=== PATIENT | male | born 1945 | race African-American/Black ===

== ENCOUNTER 2018-07-07 11:50 | Emergency (ER) | payer OTHER ==
[2018-07-07 13:05] LABS: ALT (SGPT) 62 U/L (8-55); AST (SGOT) 116 U/L (5-34); Albumin 3.3 g/dL (3.4-4.8); Alkaline Phosphatase 150 U/L (40-150); Anion Gap 15 mmol/L (10-20); BUN (Urea Nitrogen) 21 mg/dL (8.4-25.7); Bilirubin, Total 2.6 mg/dL (0.2-1.2); Calc. Creatinine Clearance 0 mL/min (70-130); Calcium 9.9 mg/dL (7.8-10.44); Carbon Dioxide 21 mmol/L (23-31); Chloride 110 mmol/L (98-107); Estimated GFR-MDRD 79; Globulin 4.2 g/dL (2.4-3.5); Glucose 108 mg/dL (80-115); Potassium 4.8 mmol/L (3.5-5.1); Protein, Total 7.5 g/dL (5.8-8.1); Sodium 141 mmol/L (136-145)
--- NOTE | 2018-07-07 14:06 | CT ---
CT BRAIN WITHOUT CONTRAST: Comparison: None. History: Stroke like symptoms. [facility] Technique: Multiple contiguous axial images were obtained in a CT of the brain without contrast. FINDINGS: There are slightly more prominent hypodensity in both cerebellar hemispheres. This is of uncertain si gnificance. There are scattered hypodensities in the subcortical and periventricular white matter, li jenise secondary to small vessel ischemic disease. There is no of intracranial hemorrhage or extraaxial fluid collections. The calvarium and overlying soft tissues are unremarkable. The visualized paranasal sinuses and masto id air cells are well aerated. IMPRESSION: 1. Small vessel ischemic disease. 2. Slightly prominent hypodense lesions in the cerebellar hemispheres may be secondary to small vesse l ischemic disease. A posterior fossa process cannot be excluded and an MRI would need to be performe d to exclude a process occurring in the posterior fossa. POS: BABATUNDE
[2018-07-07 14:37] LABS: Hemoglobin 13.7 g/dL (14.0-18.0); Mean Corpuscular HGB CONC 32.5 g/dL (32.0-36.0); Mean Corpuscular Hemoglobin 30.6 pg (27.0-31.0); Mean Corpuscular Volume 94.2 fL (78.0-98.0); RBC Distribution Width 13.2 % (11.5-14.5); Red Blood Cell (RBC) Count 4.46 mill/uL (4.70-6.10); White Blood Cell (WBC) Count 4.4 thou/uL (4.8-10.8)
[2018-07-07 15:17] LABS: Band 4 % (5-11); Eosinophils 1 % (0-10); Lymphocytes 4 % (21-51); MDiff Complete? YES; Mean Platelet Volume 8.7 fL (7.4-10.4); Monocytes 1 % (0-10); Neutrophil 90 % (42-75); PLT Morphology Comment Appears Decreased; Platelet Count 103 thou/uL (130-400)
--- NOTE | 2018-07-10 13:48 | EKG ---
Test Reason : Blood Pressure : / mmHG Vent. Rate : 070 BPM Atrial Rate : 070 BPM P-R Int : 142 ms QRS Dur : 076 ms QT Int : 432 ms P-R-T Axes : -27 026 061 degrees QTc Int : 466 ms Sinus rhythm with Premature atrial complexes with Abberant conduction Inferior infarct , age undetermined Abnormal ECG Confirmed by KADIE HODGE DO ([id number]), manuscript editor CARMELA ATKINSON ([id number]) on 07/10/2018 1:47:44 PM Referred By: Confirmed By:KADIE HODGE DO
== END 2018-07-07 15:00 | disposition home or self-care (01) ==
LOC: ERS 11:50
DX: I63.9 Cerebral infarction, unspecified (principal); B19.20 Unspecified viral hepatitis C without hepatic coma; K74.60 Unspecified cirrhosis of liver; I10 Essential (primary) hypertension; E10.40 Type 1 diabetes mellitus with diabetic neuropathy, unspecified
CPT/HCPCS: 36415; 70450; 80053; 85025; 93005

== ENCOUNTER 2018-07-08 10:27 | Emergency (ER) | payer OTHER ==
[2018-07-08 11:41] LABS: Bilirubin Small (Negative); Blood, Urine Negative (Negative); Clarity CLEAR (Clear); Glucose, Urine (Dipstick) Negative (Negative); Leukocyte Negative (Negative); Nitrite Negative (Negative); Protein, Urine (Dipstick) Negative (Neg-Trace); Specific Gravity, Urine 1.023 (1.002-1.036); pH, Urine 6.5 (5.0-9.0)
[2018-07-08 11:51] LABS: Acetaminophen Less than 6.0 mcg/mL (10.0-30.0); Alcohol Less than 10 mg/dL (Less than 10); Salicylate Less than 8.0 mg/dL (15.0-30.0)
[2018-07-08 11:56] LABS: #Basophils 0.1 thou/uL (0.0-0.2); #Monocytes 0.4 thou/uL (0.11-0.59); #Neutrophils 2.8 thou/uL (1.40-6.50); %Basophils 1.2 % (0.0-1.0); %Eosinophils 0.5 % (0.0-10.0); %Lymphocytes 23.5 % (21.0-51.0); %Monocytes 9.4 % (0.0-10.0); %Neutrophils 65.4 % (42.0-75.0); Hemoglobin 13.5 g/dL (14.0-18.0); Mean Corpuscular HGB CONC 32.8 g/dL (32.0-36.0); Mean Corpuscular Hemoglobin 30.9 pg (27.0-31.0); Mean Corpuscular Volume 94.2 fL (78.0-98.0); Platelet Count 114 thou/uL (130-400); RBC Distribution Width 13.4 % (11.5-14.5); Red Blood Cell (RBC) Count 4.38 mill/uL (4.70-6.10); White Blood Cell (WBC) Count 4.3 thou/uL (4.8-10.8)
[2018-07-08 11:59] LABS: ALT (SGPT) 63 U/L (8-55); AST (SGOT) 117 U/L (5-34); Albumin 3.2 g/dL (3.4-4.8); Alkaline Phosphatase 121 U/L (40-150); Anion Gap 12 mmol/L (10-20); BUN (Urea Nitrogen) 26 mg/dL (8.4-25.7); Bilirubin, Total 2.6 mg/dL (0.2-1.2); Calc. Creatinine Clearance 0 mL/min (70-130); Carbon Dioxide 21 mmol/L (23-31); Chloride 111 mmol/L (98-107); Estimated GFR-MDRD 78; Globulin 4.2 g/dL (2.4-3.5); Glucose 126 mg/dL (80-115); Lipase 59 U/L (8-78); Potassium 5.2 mmol/L (3.5-5.1); Protein, Total 7.4 g/dL (5.8-8.1); Sodium 139 mmol/L (136-145)
[2018-07-08 12:03] LABS: Amphetamine Not Detected (NotDetected); Barbiturates Screen Not Detected (NotDetected); Benzodiazepine Screen Not Detected (NotDetected); Cocaine Metabolite Screen Not Detected (NotDetected); Medtox Control Line Valid? VALID (VALID); Medtox Reader # READER 1; Methadone Not Detected (NotDetected); Methamphetamine Not Detected (NotDetected); Opiate Screen Not Detected (NotDetected); Oxycodone Screen Not Detected (NotDetected); Phencyclidine (PCP) Not Detected (NotDetected); THC/Cannabinoid Screen Not Detected (NotDetected); Tricyclic Screen Not Detected (NotDetected)
--- NOTE | 2018-07-08 13:38 | CT ---
CT BRAIN: Date: 07/08/18 PROVIDED CLINICAL HISTORY: Altered mental status. FINDINGS: Comparison with 07/07/18. The ventricular system appears unchanged in size and morphology. Patchy areas of diminished attenuati on are again noted involving the cerebral white matter. There is abnormally diminished density involv ing the cerebellar peduncles and cerebral hemisphere white matter, atypical for sites of chronic micr ovascular ischemic change. There is no evidence for intracranial hemorrhage. The extracranial soft ti ssues and osseous structures appear unremarkable. IMPRESSION: 1. No evidence for intracranial hemorrhage or mass effect. 2. Unusual hypodensity involving the cerebellum, stable with respect to the prior study. This could reflect chronic ischemic change. Other etiologies are not excluded. Consideration for follow-up MRI i s recommended. POS: OFF
[2018-07-08] MEDS ORDERED: Morphine 4 MG/ML VIAL ONE (20:51)
[2018-07-08] MEDS ORDERED: Diltiazem 125 MG/25 ML ONE (22:05)
--- NOTE | 2018-07-10 13:54 | EKG ---
Test Reason : AMS Blood Pressure : / mmHG Vent. Rate : 078 BPM Atrial Rate : 078 BPM P-R Int : 152 ms QRS Dur : 086 ms QT Int : 404 ms P-R-T Axes : 034 029 052 degrees QTc Int : 460 ms Normal sinus rhythm Normal ECG Confirmed by UJDY CONKLIN ([id number]), pictures editor CARMELA ATKINSON ([id number]) on 07/10/2018 1:54:20 PM Referred By: Confirmed By:JUDY CONKLIN
== END 2018-07-08 21:09 | disposition short-term general hospital (02) ==
LOC: ERS 10:27
DX: R41.82 Altered mental status, unspecified (principal); E10.40 Type 1 diabetes mellitus with diabetic neuropathy, unspecified; I10 Essential (primary) hypertension; Z79.4 Long term (current) use of insulin; Z79.899 Other long term (current) drug therapy
CPT/HCPCS: 36415; 51701; 70450; 80053; 80306; 80307; 81003; 82140; 83690; 84484; 85025; 93005; 96361; 96374; J2270

== ENCOUNTER 2018-07-28 07:14 | Inpatient (IN) | payer OTHER ==
--- NOTE | 2018-07-28 08:19 | RAD ---
PORTABLE CHEST ONE VIEW: Date: 07-28-18 Time: 8:06 a.m. History: Altered mental status. FINDINGS: The heart size is borderline. The aorta is tortuous. The lungs are well expanded without focal areas of consolidation, pneumothoraces or pleural effusions. IMPRESSION: No acute process. POS: OFF
[2018-07-28 08:29] LABS: Mean Corpuscular HGB CONC 31.7 g/dL (32.0-36.0); Mean Corpuscular Hemoglobin 28.9 pg (27.0-31.0); Mean Corpuscular Volume 91.1 fL (78.0-98.0); Mean Platelet Volume 9.8 fL (7.4-10.4); Platelet Count 98 thou/uL (130-400); RBC Distribution Width 13.4 % (11.5-14.5); Red Blood Cell (RBC) Count 4.49 mill/uL (4.70-6.10); White Blood Cell (WBC) Count 6.5 thou/uL (4.8-10.8)
[2018-07-28 08:30] LABS: INR-International Normal Ratio 1.2; PTT 29.2 SEC (22.9-36.1); Prothrombin Time 14.9 SEC (12.0-14.7)
[2018-07-28 08:38] LABS: ALT (SGPT) 68 U/L (8-55); AST (SGOT) 124 U/L (5-34); Acetaminophen Less than 6.0 mcg/mL (10.0-30.0); Alcohol Less than 10 mg/dL (Less than 10); Alkaline Phosphatase 189 U/L (40-150); Anion Gap 15 mmol/L (10-20); BUN (Urea Nitrogen) 23 mg/dL (8.4-25.7); CK (CPK) 165 U/L (30-200); Calc. Creatinine Clearance 0 mL/min (70-130); Calcium 9.3 mg/dL (7.8-10.44); Carbon Dioxide 21 mmol/L (23-31); Chloride 107 mmol/L (98-107); Estimated GFR-MDRD 64; Globulin 3.9 g/dL (2.4-3.5); Glucose 113 mg/dL (80-115); Lipase 58 U/L (8-78); Potassium 5.1 mmol/L (3.5-5.1); Protein, Total 6.9 g/dL (5.8-8.1); Salicylate Less than 8.0 mg/dL (15.0-30.0); Sodium 138 mmol/L (136-145)
--- NOTE | 2018-07-28 08:42 | CT ---
CT OF THE HEAD: Indication: Altered mental status. Comparison: 07-18-18 FINDINGS: Re-demonstration of diffuse, multifocal white matter hypoattenuation throughout the cerebral hemisphe res. Cerebellum is stable appearing. No intracranial hemorrhage, mass effect, or midline shift. IMPRESSION: No acute intracranial abnormalities. POS: BABATUNDE
[2018-07-28 08:48] LABS: Band 4 % (5-11); Eosinophils 1 % (0-10); Lymphocytes 31 % (21-51); Monocytes 16 % (0-10); Neutrophil 48 % (42-75)
[2018-07-28 08:49] LABS: MDiff Complete? YES
--- NOTE | 2018-07-28 10:36 | PDOC.FPRHP ---
- History of Present Illness Chief Complaint: AMS History of Present Illness: The patient is a 72YO AAM with a PMH significant for chronic hep c and cirrhosis and DMI who presented to the ED after being found in his bed in halfway this AM being described as difficult to arouse. Of note, the history was obtained from the ED physician, Dr. Lyons, as the patient was altered at the time of exam and his halfway guards only provided him with transportation and did not know any additional information. Per Dr. Lyons, the guards found the patient this AM in his bed after it was noticed that he did not get up and go to breakfast as he normally does. Also per Dr. Lyons the patient has a history of multiple ER admission for elevated ammonia levels as he is not compliant with his home lactulose dosing. It was therefore presumed that this was what occurred this time as well so he was brought to the ED for treatment. They attempted to transfer the patient to the halfway hospital but no beds were available so he was cleared to be admitted to the medical floor at [facility]. ED Course: The patient was given 40g of lactulose NH in the ED. - Allergies/Adverse Reactions Allergies Allergy/AdvReac Type Severity Reaction Status Date / Time No Known Allergies Allergy Verified 07/28/18 14:42 - Home Medications Medication Instructions Recorded Confirmed Type Albuterol Sulfate [Proventil Hfa] 2 puff INH QID PRN 07/28/18 07/28/18 History Aspirin [Aspirin Chewable] 81 mg PO DAILY 07/28/18 07/28/18 History Carvedilol [Coreg] 6.25 mg PO BID 07/28/18 07/28/18 History Furosemide 40 mg PO DAILY 07/28/18 07/28/18 History Hepatitis A Virus Vaccine/PF 1,440 unit IM ASDIR 07/28/18 07/28/18 History [Havrix 720 Units/0.5 ml Vial] Hepatitis B Virus Vaccine/PF 20 mcg IM ASDIR 07/28/18 07/28/18 History [Engerix-B 20 Mcg/ml Syrn] Insulin NPH Human Isophane 12 unit SC HS 07/28/18 07/28/18 History [NovoLIN N] Insulin NPH Human Isophane 17 unit SC DAILY 07/28/18 07/28/18 History [NovoLIN N] Ipratropium [Atrovent HFA] 2 puff INH QID 07/28/18 07/28/18 History Lactulose [Constulose] 60 ml PO TID 07/28/18 07/28/18 History Omeprazole 2 cap PO DAILY 07/28/18 07/28/18 History Rifaximin [Xifaxan] 3 tab PO BID 07/28/18 07/28/18 History Sodium Chloride [[place] Nasal [place] 1 spray EA NARE TID 07/28/18 07/28/18 History 0.65%] Spironolactone 4 tab PO DAILY 07/28/18 07/28/18 History - History PMHx: chronic hep C w/ cirrhosis, DMI, GERD, HTN, HLD, asthma PSHx: unable to obtain 2/2 AMS FHx: unable to obtain see above Social: unable to obtain see above - Review of Systems ROS unobtainable: due to mental status - Vital signs BP: 160/80 HR: 81 RR: 18 Tmax: 98.3F Pox: 96% on RA Wt: 99.79 kg FMR H&P: Results - Labs Result Diagrams: 07/28/18 07:52 07/28/18 07:52 Lab results: WBC 6.5 thou/uL (4.8-10.8) 07/28/18 07:52 Hgb 13.0 g/dL (14.0-18.0) L 07/28/18 07:52 Hct 40.9 % (42.0-52.0) L 07/28/18 07:52 MCV 91.1 fL (78.0-98.0) 07/28/18 07:52 Plt Count 98 thou/uL (130-400) L 07/28/18 07:52 Band Neuts % (Manual) 4 % (5-11) L 07/28/18 07:52 Sodium 138 mmol/L (136-145) 07/28/18 07:52 Potassium 5.1 mmol/L (3.5-5.1) 07/28/18 07:52 Chloride 107 mmol/L (98-107) 07/28/18 07:52 Carbon Dioxide 21 mmol/L (23-31) L 07/28/18 07:52 BUN 23 mg/dL (8.4-25.7) 07/28/18 07:52 Creatinine 1.34 mg/dL (0.7-1.3) H 07/28/18 07:52 Glucose 113 mg/dL (80-115) 07/28/18 07:52 Calcium 9.3 mg/dL (7.8-10.44) 07/28/18 07:52 Total Bilirubin 2.0 mg/dL (0.2-1.2) H 07/28/18 07:52 AST 124 U/L (5-34) H 07/28/18 07:52 ALT 68 U/L (8-55) H 07/28/18 07:52 Alkaline Phosphatase 189 U/L (40-150) H 07/28/18 07:52 Ammonia 140 umol/L (18-72) H 07/28/18 07:51 Creatine Kinase 165 U/L (30-200) 07/28/18 07:52 Serum Total Protein 6.9 g/dL (5.8-8.1) 07/28/18 07:52 Albumin 3.0 g/dL (3.4-4.8) L 07/28/18 07:52 Lipase 58 U/L (8-78) 07/28/18 07:52 - EKG Interpretation EKG: sinus rhythm with PACs - Radiology Interpretation CT scan - head Status: report reviewed by me Additional comment: no acute IC process Chest x-ray Status: report reviewed by me Additional comment: No acute cardiopulmonary process. FMR H&P: A/P - Problem List (1) Hepatic encephalopathy Current Visit: Yes Status: Acute Code(s): K72.90 - HEPATIC FAILURE, UNSPECIFIED WITHOUT COMA (2) Diabetes mellitus type I Current Visit: Yes Status: Acute (3) HTN (hypertension) Current Visit: Yes Status: Acute Code(s): I10 - ESSENTIAL (PRIMARY) HYPERTENSION (4) HLD (hyperlipidemia) Current Visit: Yes Status: Acute Code(s): E78.5 - HYPERLIPIDEMIA, UNSPECIFIED (5) GERD (gastroesophageal reflux disease) Current Visit: Yes Status: Acute Code(s): K21.9 - GASTRO-ESOPHAGEAL REFLUX DISEASE WITHOUT ESOPHAGITIS (6) Asthma Current Visit: Yes Status: Acute Code(s): J45.909 - UNSPECIFIED ASTHMA, UNCOMPLICATED (7) Hepatitis C Current Visit: Yes Status: Acute Code(s): B19.20 - UNSPECIFIED VIRAL HEPATITIS C WITHOUT HEPATIC COMA (8) Cirrhosis Current Visit: Yes Status: Acute Code(s): K74.60 - UNSPECIFIED CIRRHOSIS OF LIVER - Plan 72YO AAM w/ a history of chronic hep C with cirrhosis and DMI who was brought into the ED from state halfway after being found obtunded in his bed this AM and was found to suffering from hepatic encephalopathy. Acute hepatic encephalopathy: - Ammonia elevated at 140 on presentation and GCS score of 13-14 at time of exam. A&Ox1 and able to answer yes or no questions but nothing else and following some commands but not all. - Patient is s/p 20g of NH lactulose in the ED. Will continue until patient has had 2 BMs and will then space out to home dosing of 40g TID. - Will keep NPO while altered and start on maintenance IVFs with LR @ 140mL/hr. - Will get a repeat ammonia level in the AM. h/o hep C and cirrhosis: - Aware, will get Hep C testing to confirm. - Will resume home meds. DMI: - Aware, will start on mild SSI while NPO as patient takes less than 40 units QD of Novolin N. Will resume home basal insulin dosing as well. - Will order an A1c to ensure accurate insulin dosing. - Will order ACHS accuchecks and CC diet once tolerating PO. HTN: - Aware, will resume home meds once tolerating PO. HLD: - Aware, assuming patient is not on a statin due to h/o cirrhosis. GERD: - Aware, will resume home meds. asthma: - Aware, patient no in acute exacerbation. - Will resume home meds. FMR H&P: Upper Level - Pertinent history 72 yo M w/ PMH of hep c cirrhosis and known non-compliance with lactulose presents from assisted. Pt was reportedly found in bed and was verbal, but confused and disoriented. Guards present in pt's room are unable to provide additional hx. - Pertinent findings ROS: Unable to obtain 2/2 encephalopathy PE: Gen- NAD, resting comfortably in bed, confused HEENT: NCAT, PERRLA CV: RRR No MRG Respiratory: Lungs CTA-bl Neuro: GCS E4, V4, M4 (12), hyperreflexia w/o clonus Psych: A&O X0, responds to verbal stimuli; however, inappropriate response Abd: BS X4, NTTP Ext: Pulses 2+ throughout, moving all - Plan Date/Time: 07/28/18 1036 I, Hira Yang DO, have evaluated this patient and agree with findings/ plan as outlined by healthcare administration intern resident. Pertinent changes/additions are listed here. 1) Hepatic encephalopathy: - ammonia 140 - admit medical and give lactulose NH @ 20gms q2hr until 2 soft BMS, then de- escalate to 30gm TID and titrate to 3-4 soft BMs/day - trend daily ammonia - NPO and ADAT as mentation improves - likely related to med non-compliance from available history 2) SHOAIB: - elevated Cr from prior visits - will give gentle IVF hydration and trend daily - possibly 2/2 volume depletion vs GI vs hepatorenal - dc nephrotoxic medications 3) Thrombocytopenia - 2/2 cirrhosis, will trend Dispo: stable, will resume pts lactulose and trend ammonia level, titrate medications to BMs. Consider rifaximin if no resolution or improvement in s/s over 48 hrs. Addendum - Attending - Attending Attestation Date/Time: 07/28/18 8655 I personally evaluated the patient and discussed the management with Dr. Manriquez I agree with the History, Examination, Assessment and Plan documented above with any addition or exceptions noted below- 72 yo male with h/o cirrhosis secondary to hepatitis C and DM presented with altered mental status. Patient is currently an inmate and was found down on his bed obtunded. History of non- compliance with his medications and recent hospitalization for similar episode. PMH/PSH/Meds/All reviewed and agree with resident's documentation. Afebrile VSS. Exam repeated by me and agree with resident's findings except now awake and answering questions. Oriented x1 only. Labs: WBC= 6.5, H/H=13/40.9, Plt=98, PT/INR= 14.9/1.2, NA= 138, K=5.1, Le=706, CO2=21, BUN/Cr=23/1.34, Twyw=064, t. bili=2.0, AST= 124/68, Gnspxvz=066, Alb=3.0, Guq=hykr=155. A/P: 1) Hepatic encephalopathy- continue ;lactulose; change dosing to po. RTestart xifixaman. 2 ) DM- monitor accuchecks; resume home meds.
[2018-07-28 11:10] LABS: Bilirubin Negative (Negative); Blood, Urine Negative (Negative); Clarity CLEAR (Clear); Glucose, Urine (Dipstick) Negative (Negative); Leukocyte Negative (Negative); Nitrite Negative (Negative); Protein, Urine (Dipstick) Negative (Neg-Trace); Specific Gravity, Urine 1.014 (1.002-1.036); pH, Urine 7.5 (5.0-9.0)
[2018-07-28 11:17] LABS: Amphetamine Not Detected (NotDetected); Barbiturates Screen Not Detected (NotDetected); Benzodiazepine Screen Not Detected (NotDetected); Cocaine Metabolite Screen Not Detected (NotDetected); Medtox Control Line Valid? VALID (VALID); Medtox Reader # READER 4; Methadone Not Detected (NotDetected); Methamphetamine Not Detected (NotDetected); Opiate Screen Not Detected (NotDetected); Oxycodone Screen Not Detected (NotDetected); Phencyclidine (PCP) Not Detected (NotDetected); THC/Cannabinoid Screen Not Detected (NotDetected); Tricyclic Screen Not Detected (NotDetected)
[2018-07-28] MEDS ORDERED: Ondansetron PF 4 MG/2 ML Vial IVP PRN ×2 (14:12→15:21)
[2018-07-28] MEDS ORDERED: Ondansetron ODT 4 MG TAB PO PRN (14:12)
[2018-07-28] MEDS ORDERED: Sodium Chloride 0.9% 1,000 ML IV SCH (14:15)
[2018-07-28] MEDS ORDERED: HumaLOG 300 UNITS/3 ML VIAL SC PRN (15:21)
[2018-07-28] MEDS ORDERED: Dextrose 5% in Water 1,000 ML IV PRN (15:21)
[2018-07-28] MEDS ORDERED: Sodium Chloride 0.65% Nasal 44 ML BOT EA NARE PRN (15:21)
[2018-07-28] MEDS ORDERED: Dextrose 50% Abboject 50 ML SYRINGE SLOW IVP PRN (15:21)
[2018-07-28] MEDS: Carvedilol 6.25 MG TAB PO SCH (17:44)
[2018-07-28] MEDS: Lactated Ringer's 1,000 ML IV SCH ×2 (17:45→20:49)
[2018-07-28] MEDS: Ipratropium Oral Inhaler (200 INHALATIONS) INH SCH ×2 (19:15→19:16)
[2018-07-28] MEDS: NPH, Human Insulin Isophane 300 UNIT/3 ML VIAL SC SCH (21:14)
[2018-07-29 04:18] LABS: ALT (SGPT) 58 U/L (8-55); AST (SGOT) 96 U/L (5-34); Albumin 2.7 g/dL (3.4-4.8); Alkaline Phosphatase 116 U/L (40-150); Anion Gap 13 mmol/L (10-20); BUN (Urea Nitrogen) 18 mg/dL (8.4-25.7); Bilirubin, Total 2.5 mg/dL (0.2-1.2); Calc. Creatinine Clearance 0 mL/min (70-130); Calcium 9.2 mg/dL (7.8-10.44); Carbon Dioxide 20 mmol/L (23-31); Chloride 109 mmol/L (98-107); Estimated GFR-MDRD 87; Globulin 3.7 g/dL (2.4-3.5); Glucose 96 mg/dL (80-115); Potassium 4.6 mmol/L (3.5-5.1); Protein, Total 6.4 g/dL (5.8-8.1); Sodium 137 mmol/L (136-145)
--- NOTE | 2018-07-29 05:19 | PDOC.FM ---
- Subjective Subjective: No acute events overnight. A&O x1. - Objective MAR Reviewed: Yes Vital Signs & Weight: Vital Signs (12 hours) Temp Pulse Resp BP BP BP Pulse Ox 07/29/18 00:00 98.1 F 85 18 144/81 H 100 07/28/18 21:00 96 07/28/18 20:00 98.4 F 81 18 128/73 18 L 07/28/18 17:45 86 147/91 H 07/28/18 17:44 147/91 H I&O: 07/27/18 07/28/18 07/29/18 06:59 06:59 06:59 Intake Total 1140 Balance 1140 Result Diagrams: 07/29/18 03:42 07/29/18 03:43 Phys Exam - Physical Examination Constitutional: NAD A&O x1, asterixis Neck: full ROM Respiratory: no wheezing, clear to auscultation bilateral Cardiovascular: RRR, no significant murmur Gastrointestinal: soft, non-tender mild distension Neurological: non-focal, moves all 4 limbs Deviation from normal: A&O x1 Dx/Plan (1) Asthma Code(s): J45.909 - UNSPECIFIED ASTHMA, UNCOMPLICATED Status: Acute (2) Cirrhosis Code(s): K74.60 - UNSPECIFIED CIRRHOSIS OF LIVER Status: Acute (3) Diabetes mellitus type I Status: Acute (4) GERD (gastroesophageal reflux disease) Code(s): K21.9 - GASTRO-ESOPHAGEAL REFLUX DISEASE WITHOUT ESOPHAGITIS Status: Acute (5) HLD (hyperlipidemia) Code(s): E78.5 - HYPERLIPIDEMIA, UNSPECIFIED Status: Acute (6) HTN (hypertension) Code(s): I10 - ESSENTIAL (PRIMARY) HYPERTENSION Status: Acute (7) Hepatic encephalopathy Code(s): K72.90 - HEPATIC FAILURE, UNSPECIFIED WITHOUT COMA Status: Acute (8) Diabetic neuropathy Code(s): E11.40 - TYPE 2 DIABETES MELLITUS WITH DIABETIC NEUROPATHY, UNSP Status: Acute - Plan Plan: 72 yo M with h/o of chronic hepatitis C cirrhosis admitted for hepatic encephalopathy Acute hepatic encephalopathy -likely 2/2 non-compliance per yesterday's report -improved, ammonia today at 72 -continue home lactulose regimen: 40gm po TID FERNANDO -continue home xifaxan 200mg BID -f/u with custodial medical team to get baseline mentation Chronic Hepatitis C Cirrhosis -Pending Hep C immunology -Child Marrero Class B, can f/u outpt to evaluate candidacy for liver transplant Thrombocytopenia -Last admission earlier this july with thrombocytopenia with plts in low 100s -pending AM platelets -likely 2/2 cirrhosis -if significant declined, can consider d/c lovenox SHOAIB, resolved -adequate po intake, continue DM1 -stable -continue mild SS Diabetic neuropathy -gabapentin qhs, low dose due to sedating effects HTN -continue home meds Asthma -stable -continue home meds DVT ppx: lovenox GI ppx: home omeprazole Dispo: stable. still altered, unsure of baseline. continue xifaxan & lactulose FERNANDO. d/c pending return to baseline. Addendum - Attending - Attending Attestation Date/Time: 07/29/18 7368 I personally evaluated the patient and discussed the management with Dr. Lee I agree with the History, Examination, Assessment and Plan documented above with any addition or exceptions noted below- Patient denies any complaints. Still oriented x 1 only. Afebrile VSS. A/P: 1) Hepatic encephalopathy- continue lactulose and xifaxamin. Will confirm meds with infirmary and whether he has been compliant. 2) Cirrhosis - continue current meds. 3) DM- stable;
[2018-07-29] MEDS: Lactated Ringer's 1,000 ML IV SCH ×3 (05:25→19:36)
[2018-07-29] MEDS: Ipratropium Oral Inhaler (200 INHALATIONS) INH SCH ×4 (06:58→18:25)
[2018-07-29] MEDS: Carvedilol 6.25 MG TAB PO SCH ×2 (07:26→15:30)
[2018-07-29] MEDS: Enoxaparin Sodium 40 MG/0.4 ML SYRINGE SC SCH (07:26)
[2018-07-29] MEDS: Aspirin 81 mg Enteric Coated Tablet PO SCH (07:26)
[2018-07-29] MEDS: Spironolactone 100 MG TAB PO SCH (07:26)
[2018-07-29] MEDS: Furosemide 40 MG TAB PO SCH (07:26)
[2018-07-29] MEDS: NPH, Human Insulin Isophane 300 UNIT/3 ML VIAL SC SCH ×2 (07:27→21:41)
[2018-07-29] MEDS ORDERED: Carvedilol 6.25 MG TAB PO SCH (09:00)
[2018-07-29] MEDS ORDERED: Furosemide 40 MG TAB PO SCH (09:00)
[2018-07-29] MEDS ORDERED: Pantoprazole 40 MG VIAL IVP SCH (09:00)
[2018-07-29] MEDS ORDERED: OMEPRAZOLE PO SCH (09:00)
[2018-07-29] MEDS ORDERED: Spironolactone 25 MG TAB PO SCH (09:00)
[2018-07-29] MEDS ORDERED: RIFAXIMIN PO SCH (09:00)
[2018-07-29 10:30] LABS: #Basophils 0.1 thou/uL (0.0-0.2); #Eosinphils 0.3 thou/uL (0.0-0.7); #Monocytes 1.1 thou/uL (0.11-0.59); #Neutrophils 4.2 thou/uL (1.40-6.50); %Basophils 0.8 % (0.0-1.0); %Eosinophils 4.5 % (0.0-10.0); %Lymphocytes 26.1 % (21.0-51.0); %Monocytes 13.9 % (0.0-10.0); %Neutrophils 54.7 % (42.0-75.0); Hemoglobin 11.6 g/dL (14.0-18.0); Mean Corpuscular HGB CONC 32.8 g/dL (32.0-36.0); Mean Corpuscular Volume 91.4 fL (78.0-98.0); Mean Platelet Volume 5.1 fL (7.4-10.4); Platelet Count 297 thou/uL (130-400); RBC Distribution Width 13.3 % (11.5-14.5); Red Blood Cell (RBC) Count 3.87 mill/uL (4.70-6.10); White Blood Cell (WBC) Count 7.7 thou/uL (4.8-10.8)
[2018-07-29 10:46] LABS: Hemoglobin A1c 5.3 % (4.0-6.0)
[2018-07-29] MEDS: Rifaximin 550 MG TAB PO SCH ×3 (14:11→21:41)
[2018-07-29] MEDS ORDERED: Gabapentin 100 MG CAP PO SCH ×2 (20:00→21:15)
[2018-07-30] MEDS: Lactated Ringer's 1,000 ML IV SCH (04:13)
--- NOTE | 2018-07-30 05:59 | PDOC.FM ---
- Subjective Subjective: No acute events overnight. - Objective MAR Reviewed: Yes Vital Signs & Weight: Vital Signs (12 hours) Temp Pulse Resp BP Pulse Ox 07/30/18 04:58 98.1 F 77 18 128/70 96 07/30/18 00:00 98.4 F 75 18 124/83 95 07/29/18 20:00 98.5 F 74 16 127/86 97 07/29/18 18:25 87 20 99 I&O: 07/28/18 07/29/18 07/30/18 06:59 06:59 06:59 Intake Total 2440 2440 Balance 2440 2440 Result Diagrams: 07/30/18 05:33 07/30/18 05:33 Phys Exam - Physical Examination Constitutional: NAD A&Ox1 HEENT: moist MMs Respiratory: no wheezing, no rales Cardiovascular: RRR, no significant murmur Gastrointestinal: soft, non-tender Musculoskeletal: no edema, pulses present Neurological: moves all 4 limbs Dx/Plan (1) Hepatic encephalopathy Code(s): K72.90 - HEPATIC FAILURE, UNSPECIFIED WITHOUT COMA Status: Acute (2) Cirrhosis Code(s): K74.60 - UNSPECIFIED CIRRHOSIS OF LIVER Status: Chronic (3) Diabetes mellitus type I Status: Chronic (4) GERD (gastroesophageal reflux disease) Code(s): K21.9 - GASTRO-ESOPHAGEAL REFLUX DISEASE WITHOUT ESOPHAGITIS Status: Chronic (5) HLD (hyperlipidemia) Code(s): E78.5 - HYPERLIPIDEMIA, UNSPECIFIED Status: Chronic (6) HTN (hypertension) Code(s): I10 - ESSENTIAL (PRIMARY) HYPERTENSION Status: Chronic (7) Diabetic neuropathy Code(s): E11.40 - TYPE 2 DIABETES MELLITUS WITH DIABETIC NEUROPATHY, UNSP Status: Chronic (8) Asthma Code(s): J45.909 - UNSPECIFIED ASTHMA, UNCOMPLICATED Status: Chronic - Plan Plan: 72 yo M with h/o of chronic hepatitis C cirrhosis admitted for hepatic encephalopathy Acute hepatic encephalopathy -2/2 non-compliance per infrirmary provider -clinically improved, ammonia at -continue home lactulose regimen: 40gm po TID FERNANDO -continue home xifaxan 200mg BID Chronic Hepatitis C Cirrhosis -Pending Hep C immunology -Child Marrero Class B, can f/u outpt to evaluate candidacy for liver transplant Thrombocytopenia -Continue to monitor with AM CBC SHOAIB, resolved -adequate po intake, continue DM1 -stable -continue mild SS Diabetic neuropathy -gabapentin qhs, low dose due to sedating effects HTN -continue home meds Asthma -stable -continue home meds DVT ppx: lovenox GI ppx: home omeprazole Dispo: stable. still altered, unsure of baseline. continue xifaxan & lactulose FERNANDO. d/c pending return to baseline. Addendum - Attending - Attending Attestation Date/Time: 07/30/18 7842 I personally evaluated the patient and discussed the management with Dr. Lee. I agree with the History, Examination, Assessment and Plan documented above with any addition or exceptions noted below - Patient without complaints. Afebrile VSS. A&O x2. A/P: 1) Hepatic encephalopathy- continue lactulose and xifaximin. Recheck ammonia tomorrow; orientation/mentation improving. 2) Cirrhosis- stable. 3) DM- stable.
[2018-07-30] MEDS: Furosemide 40 MG TAB PO SCH (06:32)
[2018-07-30] MEDS: Ipratropium Oral Inhaler (200 INHALATIONS) INH SCH ×4 (07:24→18:51)
[2018-07-30 08:35] LABS: Anion Gap 13 mmol/L (10-20); BUN (Urea Nitrogen) 15 mg/dL (8.4-25.7); Calc. Creatinine Clearance 0 mL/min (70-130); Calcium 9.3 mg/dL (7.8-10.44); Carbon Dioxide 20 mmol/L (23-31); Chloride 108 mmol/L (98-107); Estimated GFR-MDRD 76; Glucose 71 mg/dL (80-115); Potassium 4.3 mmol/L (3.5-5.1); Sodium 137 mmol/L (136-145)
[2018-07-30 08:37] LABS: Band 5 % (5-11); Eosinophils 12 % (0-10); Hemoglobin 11.7 g/dL (14.0-18.0); Lymphocytes 39 % (21-51); MDiff Complete? YES; Mean Corpuscular HGB CONC 32.7 g/dL (32.0-36.0); Mean Corpuscular Hemoglobin 30.1 pg (27.0-31.0); Mean Corpuscular Volume 91.8 fL (78.0-98.0); Mean Platelet Volume 6.1 fL (7.4-10.4); Monocytes 10 % (0-10); Neutrophil 33 % (42-75); PLT Morphology Comment Appears Decreased; Platelet Count 127 thou/uL (130-400); RBC Distribution Width 13.3 % (11.5-14.5); Reactive Lymphocytes 1 % (0-10); Red Blood Cell (RBC) Count 3.89 mill/uL (4.70-6.10); White Blood Cell (WBC) Count 5.2 thou/uL (4.8-10.8)
[2018-07-30] MEDS: Carvedilol 6.25 MG TAB PO SCH ×2 (08:59→17:49)
[2018-07-30] MEDS: NPH, Human Insulin Isophane 300 UNIT/3 ML VIAL SC SCH ×2 (08:59→21:18)
[2018-07-30] MEDS: Aspirin 81 mg Enteric Coated Tablet PO SCH (08:59)
[2018-07-30] MEDS: Rifaximin 550 MG TAB PO SCH ×2 (08:59→21:18)
[2018-07-30] MEDS ORDERED: Gabapentin 100 MG CAP PO SCH (09:00)
[2018-07-30] MEDS: Enoxaparin Sodium 40 MG/0.4 ML SYRINGE SC SCH (09:00)
[2018-07-30] MEDS: Spironolactone 100 MG TAB PO SCH (09:15)
[2018-07-30 12:30] VITALS: BMI 26.2
[2018-07-31] MEDS ORDERED: Gabapentin 100 MG CAP PO SCH (00:30)
[2018-07-31] MEDS: Ipratropium Oral Inhaler (200 INHALATIONS) INH SCH ×4 (06:36→20:28)
[2018-07-31] MEDS: Furosemide 40 MG TAB PO SCH (07:26)
[2018-07-31] MEDS: Carvedilol 6.25 MG TAB PO SCH ×2 (07:26→16:47)
[2018-07-31] MEDS: Aspirin 81 mg Enteric Coated Tablet PO SCH (07:26)
[2018-07-31] MEDS: Spironolactone 100 MG TAB PO SCH (07:27)
[2018-07-31] MEDS: Enoxaparin Sodium 40 MG/0.4 ML SYRINGE SC SCH (07:28)
[2018-07-31] MEDS: NPH, Human Insulin Isophane 300 UNIT/3 ML VIAL SC SCH ×2 (07:28→20:32)
[2018-07-31] MEDS: Rifaximin 550 MG TAB PO SCH ×2 (07:28→20:31)
--- NOTE | 2018-07-31 08:01 | PDOC.FM ---
- Subjective Subjective: No acute events overnight. - Objective MAR Reviewed: Yes Vital Signs & Weight: Vital Signs (12 hours) Pulse Resp BP Pulse Ox 07/31/18 07:26 116/69 07/31/18 06:36 81 16 97 Weight Weight 73.652 kg I&O: 07/30/18 07/31/18 08/01/18 06:59 06:59 06:59 Intake Total 2440 1460 Balance 2440 1460 Result Diagrams: 07/31/18 04:12 07/30/18 05:33 Phys Exam - Physical Examination Constitutional: NAD HEENT: moist MMs Cardiovascular: RRR, no significant murmur Gastrointestinal: soft, non-tender distension, fluid wave Musculoskeletal: no edema, pulses present Neurological: non-focal, moves all 4 limbs no asterixis Deviation from normal: a&o x2 Dx/Plan (1) Hepatic encephalopathy Code(s): K72.90 - HEPATIC FAILURE, UNSPECIFIED WITHOUT COMA Status: Acute (2) Cirrhosis Code(s): K74.60 - UNSPECIFIED CIRRHOSIS OF LIVER Status: Chronic (3) Diabetes mellitus type I Status: Chronic (4) GERD (gastroesophageal reflux disease) Code(s): K21.9 - GASTRO-ESOPHAGEAL REFLUX DISEASE WITHOUT ESOPHAGITIS Status: Chronic (5) HLD (hyperlipidemia) Code(s): E78.5 - HYPERLIPIDEMIA, UNSPECIFIED Status: Chronic (6) HTN (hypertension) Code(s): I10 - ESSENTIAL (PRIMARY) HYPERTENSION Status: Chronic (7) Diabetic neuropathy Code(s): E11.40 - TYPE 2 DIABETES MELLITUS WITH DIABETIC NEUROPATHY, UNSP Status: Chronic (8) Asthma Code(s): J45.909 - UNSPECIFIED ASTHMA, UNCOMPLICATED Status: Chronic - Plan Plan: 72 yo M with h/o of chronic hepatitis C cirrhosis admitted for hepatic encephalopathy Acute hepatic encephalopathy -2/2 non-compliance per infrirmary provider -clinically improved despite inc. in ammonia -continue home lactulose regimen: 40gm po TID FERNANDO -continue home xifaxan 200mg BID Chronic Hepatitis C Cirrhosis -Pending Hep C immunology -Child Marrero Class B, can f/u outpt to evaluate candidacy for liver transplant Thrombocytopenia, resolved SHOAIB, resolved -adequate po intake, continue DM1 -stable -continue mild SS Diabetic neuropathy -gabapentin qhs, low dose due to sedating effects HTN -continue home meds Asthma -stable -continue home meds DVT ppx: lovenox GI ppx: home omeprazole Dispo: stable. still altered, unsure of baseline. continue xifaxan & lactulose FERNANDO. d/c pending return to baseline. recheck rpt ammonia. Discussed with Dr. Diana Addendum - Attending - Attending Attestation Date/Time: 07/31/18 0985 I personally evaluated the patient and discussed the management with Dr. Lee I agree with the History, Examination, Assessment and Plan documented above with any addition or exceptions noted below. Note recurrent elevated ammonia level no evidence GI bleeding baseline MS in question, fpc would benefit from being out of general fdc population will discuss options with [facility] Ricky BARRETT for options with notable repeated recent hospitalization he would benefit from more structured/ controlled environment.
[2018-07-31 08:43] LABS: Hemoglobin 12.1 g/dL (14.0-18.0); Mean Corpuscular HGB CONC 33.2 g/dL (32.0-36.0); Mean Corpuscular Hemoglobin 30.3 pg (27.0-31.0); Mean Corpuscular Volume 91.1 fL (78.0-98.0); Mean Platelet Volume 6.5 fL (7.4-10.4); Platelet Count 181 thou/uL (130-400); RBC Distribution Width 13.1 % (11.5-14.5); Red Blood Cell (RBC) Count 3.99 mill/uL (4.70-6.10); White Blood Cell (WBC) Count 5.1 thou/uL (4.8-10.8)
[2018-07-31 10:53] LABS: Eosinophils 10 % (0-10); Large Platelets SLIGHT; Lymphocytes 21 % (21-51); MDiff Complete? YES; Monocytes 18 % (0-10); Neutrophil 48 % (42-75); PLT Morphology Comment Appears Adequate; Reactive Lymphocytes 2 % (0-10)
[2018-07-31] MEDS: Gabapentin 100 MG CAP PO SCH (20:31)
[2018-08-01] MEDS: Carvedilol 6.25 MG TAB PO SCH ×2 (07:38→16:53)
[2018-08-01] MEDS: Aspirin 81 mg Enteric Coated Tablet PO SCH (07:38)
[2018-08-01] MEDS: Furosemide 40 MG TAB PO SCH (07:38)
[2018-08-01] MEDS: Spironolactone 100 MG TAB PO SCH (07:38)
[2018-08-01] MEDS: Rifaximin 550 MG TAB PO SCH ×2 (07:38→20:31)
[2018-08-01] MEDS: Enoxaparin Sodium 40 MG/0.4 ML SYRINGE SC SCH ×2 (07:39→07:47)
[2018-08-01] MEDS: NPH, Human Insulin Isophane 300 UNIT/3 ML VIAL SC SCH ×3 (07:40→20:32)
--- NOTE | 2018-08-01 08:07 | PDOC.FM ---
- Subjective Subjective: No acute events overnight - Objective MAR Reviewed: Yes Vital Signs & Weight: Vital Signs (12 hours) Temp Pulse Resp BP BP Pulse Ox 08/01/18 07:38 118/73 08/01/18 07:32 98.0 F 72 18 118/73 98 08/01/18 04:22 97.9 F 79 16 135/61 95 08/01/18 00:27 97.9 F 76 18 119/74 95 07/31/18 20:30 98 07/31/18 20:14 97.9 F 71 18 123/77 98 Weight Weight 73.652 kg I&O: 07/31/18 08/01/18 08/02/18 06:59 06:59 06:59 Intake Total 1460 1220 Balance 1460 1220 Result Diagrams: 07/31/18 04:12 07/30/18 05:33 Phys Exam - Physical Examination Constitutional: NAD HEENT: PERRLA, moist MMs Neck: full ROM Respiratory: no wheezing, clear to auscultation bilateral Cardiovascular: RRR, no significant murmur Gastrointestinal: soft mild distension with fluid wave, no tenderness Musculoskeletal: no edema, pulses present Neurological: non-focal, moves all 4 limbs no asterixis Deviation from normal: a&o x1 Dx/Plan (1) Hepatic encephalopathy Code(s): K72.90 - HEPATIC FAILURE, UNSPECIFIED WITHOUT COMA Status: Acute (2) Cirrhosis Code(s): K74.60 - UNSPECIFIED CIRRHOSIS OF LIVER Status: Chronic (3) Diabetes mellitus type I Status: Chronic (4) GERD (gastroesophageal reflux disease) Code(s): K21.9 - GASTRO-ESOPHAGEAL REFLUX DISEASE WITHOUT ESOPHAGITIS Status: Chronic (5) HLD (hyperlipidemia) Code(s): E78.5 - HYPERLIPIDEMIA, UNSPECIFIED Status: Chronic (6) HTN (hypertension) Code(s): I10 - ESSENTIAL (PRIMARY) HYPERTENSION Status: Chronic (7) Diabetic neuropathy Code(s): E11.40 - TYPE 2 DIABETES MELLITUS WITH DIABETIC NEUROPATHY, UNSP Status: Chronic (8) Asthma Code(s): J45.909 - UNSPECIFIED ASTHMA, UNCOMPLICATED Status: Chronic - Plan Plan: 72 yo M with h/o of chronic hepatitis C cirrhosis admitted for hepatic encephalopathy Acute hepatic encephalopathy -2/2 non-compliance -clinically unchanged, A&O x1, dec in ammonia levels -continue home lactulose regimen: 40gm po TID FERNANDO -continue home xifaxan 200mg BID Chronic Hepatitis C Cirrhosis -Pending Hep C immunology -Child Marrero Class B, can f/u outpt to evaluate candidacy for liver transplant Thrombocytopenia, resolved SHOAIB, resolved -adequate po intake, continue DM1 -dec AM insulin to 10 units -continue mild SS Diabetic neuropathy -gabapentin qhs, low dose due to sedating effects HTN -continue home meds Asthma -stable -continue home meds DVT ppx: lovenox GI ppx: home omeprazole Dispo: stable. dex 70/30 requirement to 10 units in AM since glucoses have been low. continue to monitor. continue lactulose & xifaxan. call [facility] for placement. Discussed with Dr. Diana Addendum - Attending - Attending Attestation Date/Time: 08/01/18 1210 I personally evaluated the patient and discussed the management with Dr. Lee I agree with the History, Examination, Assessment and Plan documented above with any addition or exceptions noted below. Continue to look into convalescent care at [facility] Ricky Gabriel.
[2018-08-01] MEDS: Ipratropium Oral Inhaler (200 INHALATIONS) INH SCH ×4 (10:26→19:01)
[2018-08-01 15:13] LABS: HIV (1/2) Antibody/Antigen Non-Reactive (NonReactive); HIV 1/2 INDEX 0.48 S/CO (<1.00)
[2018-08-01 15:17] LABS: Band 3 % (5-11); Eosinophils 8 % (0-10); Large Platelets SLIGHT; Lymphocytes 30 % (21-51); MDiff Complete? YES; Mean Corpuscular Hemoglobin 29.9 pg (27.0-31.0); Mean Corpuscular Volume 90.7 fL (78.0-98.0); Mean Platelet Volume 8.5 fL (7.4-10.4); Monocytes 13 % (0-10); Neutrophil 41 % (42-75); PLT Morphology Comment Appears Decreased; Platelet Count 104 thou/uL (130-400); Polychromasia SLIGHT = 2-3 cells (100X) (0-2/hpf); RBC Distribution Width 13.1 % (11.5-14.5); Reactive Lymphocytes 2 % (0-10); Red Blood Cell (RBC) Count 4.01 mill/uL (4.70-6.10)
[2018-08-01] MEDS: Gabapentin 100 MG CAP PO SCH (20:31)
[2018-08-02] MEDS ORDERED: Gabapentin 100 MG CAP PO SCH (04:00)
[2018-08-02] MEDS ORDERED: NPH, Human Insulin Isophane 300 UNIT/3 ML VIAL SC SCH (06:13)
--- NOTE | 2018-08-02 06:22 | PDOC.FM ---
Addendum entered and electronically signed by Gauri Kinsey MD 08/02/18 10:19 : will also further work up family reunification specialist cirrhosis with either US or CT-will discuss w/ radiology also start on abx ppx for sbp w/ qdaily rocephin Original Note: - Subjective Subjective: No acute events overnight. A&O x2 - Objective MAR Reviewed: Yes Vital Signs & Weight: Vital Signs (12 hours) Temp Pulse Resp BP Pulse Ox 08/01/18 20:33 97.7 F 72 18 120/75 96 08/01/18 20:30 96 08/01/18 19:01 73 14 96 Weight Weight 73.652 kg I&O: 07/31/18 08/01/18 08/02/18 06:59 06:59 06:59 Intake Total 1460 1220 1320 Balance 1460 1220 1320 Result Diagrams: 08/01/18 14:24 07/30/18 05:33 Phys Exam - Physical Examination Constitutional: NAD HEENT: moist MMs Neck: full ROM Respiratory: no wheezing, clear to auscultation bilateral Cardiovascular: RRR, no significant murmur Gastrointestinal: soft, non-tender distended Neurological: non-focal, moves all 4 limbs Deviation from normal: A&O x2 Dx/Plan (1) Hepatic encephalopathy Code(s): K72.90 - HEPATIC FAILURE, UNSPECIFIED WITHOUT COMA Status: Acute (2) Cirrhosis Code(s): K74.60 - UNSPECIFIED CIRRHOSIS OF LIVER Status: Chronic (3) Diabetes mellitus type I Status: Chronic (4) GERD (gastroesophageal reflux disease) Code(s): K21.9 - GASTRO-ESOPHAGEAL REFLUX DISEASE WITHOUT ESOPHAGITIS Status: Chronic (5) HLD (hyperlipidemia) Code(s): E78.5 - HYPERLIPIDEMIA, UNSPECIFIED Status: Chronic (6) HTN (hypertension) Code(s): I10 - ESSENTIAL (PRIMARY) HYPERTENSION Status: Chronic (7) Diabetic neuropathy Code(s): E11.40 - TYPE 2 DIABETES MELLITUS WITH DIABETIC NEUROPATHY, UNSP Status: Chronic (8) Asthma Code(s): J45.909 - UNSPECIFIED ASTHMA, UNCOMPLICATED Status: Chronic - Plan Plan: 72 yo M with h/o of chronic hepatitis C cirrhosis admitted for hepatic encephalopathy Acute hepatic encephalopathy, resolved -2/2 non-compliance -clinically A&O x2 -fluctuating ammonia levels despite receiving medication regimen -FOBT negative -will inc. lactulose to QID, continue 40gm to titrate to 4-5 BMs a day -continue home xifaxan 200mg BID Chronic Hepatitis C Cirrhosis -Pending Hep C immunology -Child Marrero Class B, can f/u outpt to evaluate candidacy for liver transplant Thrombocytopenia -HIT 2 unlikely given platelet pattern -resume Lovenox as is SHOAIB, resolved -adequate po intake, continue DM1 -AM insulin to 10 units -qHs insulin dec to 8 units -continue mild SS Diabetic neuropathy -gabapentin qhs, low dose due to sedating effects HTN -continue home meds Asthma -stable -continue home meds DVT ppx: lovenox GI ppx: home omeprazole Dispo: stable. requirements for both AM & qhs dose, will continue to monitor accuchecks. Pending placement at [facility] for convalescent care. Discussed with Dr. Diana Addendum - Attending - Attending Attestation Date/Time: 08/02/18 1212 I personally evaluated the patient and discussed the management with Dr. Lee I agree with the History, Examination, Assessment and Plan documented above with any addition or exceptions noted below. address concerns waxing and waning MS and ammonia level consider GI bleed no current evidence, infection doubt SBP abdomen soft , Portal vein thrombosis and known hep C with risk hepatocellular carcinoma no recent drugs benzo etc scan today start empirical ABX and continue rec transfer convalescent care Patient not suitable for general long-term population.Patient still requiring assistance and prompting for ADL.
[2018-08-02] MEDS: Ipratropium Oral Inhaler (200 INHALATIONS) INH SCH ×4 (07:19→18:57)
[2018-08-02] MEDS: Carvedilol 6.25 MG TAB PO SCH ×2 (07:59→17:23)
[2018-08-02] MEDS: Enoxaparin Sodium 40 MG/0.4 ML SYRINGE SC SCH (08:00)
[2018-08-02] MEDS: Aspirin 81 mg Enteric Coated Tablet PO SCH (08:00)
[2018-08-02] MEDS: Rifaximin 550 MG TAB PO SCH ×2 (08:00→21:09)
[2018-08-02] MEDS: Spironolactone 100 MG TAB PO SCH (08:00)
[2018-08-02] MEDS: Furosemide 40 MG TAB PO SCH (08:00)
[2018-08-02] MEDS: NPH, Human Insulin Isophane 300 UNIT/3 ML VIAL SC SCH (08:02)
[2018-08-02] MEDS ORDERED: cefTRIAXone\\ROCEPHIN 1 GM in Sodium Chloride 0.9% 100 ML IVPB SCH (11:00)
[2018-08-02 15:39] LABS: ALT (SGPT) 58 U/L (8-55); AST (SGOT) 97 U/L (5-34); Albumin 2.7 g/dL (3.4-4.8); Alkaline Phosphatase 138 U/L (40-150); Anion Gap 13 mmol/L (10-20); BUN (Urea Nitrogen) 20 mg/dL (8.4-25.7); Bilirubin, Total 1.9 mg/dL (0.2-1.2); Calc. Creatinine Clearance 57 mL/min (70-130); Calcium 9.5 mg/dL (7.8-10.44); Carbon Dioxide 20 mmol/L (23-31); Chloride 105 mmol/L (98-107); Estimated GFR-MDRD 69; Globulin 4.2 g/dL (2.4-3.5); Glucose 125 mg/dL (80-115); Potassium 4.9 mmol/L (3.5-5.1); Protein, Total 6.9 g/dL (5.8-8.1); Sodium 133 mmol/L (136-145)
[2018-08-02] MEDS ORDERED: Pregabalin 25 MG CAP PO SCH ×2 (20:00)
[2018-08-02 20:14] VITALS: BP 130/72; TEMP 98.3
--- NOTE | 2018-08-03 13:37 | DIS ---
DATE OF ADMISSION: 07/28/2018 DATE OF DISCHARGE: 08/03/2018 RESIDENT: Francine Lee MD, PGY-1. ADMITTING ATTENDING: Dr. Angie Lugo. DISCHARGE ATTENDING: Javi Diana MD. CONSULT: None. PROCEDURES: None. PRIMARY DIAGNOSIS: Hepatic encephalopathy secondary to noncompliance. SECONDARY DIAGNOSES: 1. Hepatitis C with cirrhosis. 2. Diabetes mellitus type 1. 3. Hypertension. 4. Hyperlipidemia. 5. GERD. 6. Congenital ichthyosis. 7. Diabetic neuropathy. DISCHARGE MEDICATIONS: 1. Aspirin 81 mg p.o. daily. 2. Coreg 6.25 mg p.o. b.i.d. with meals. 3. Lasix 40 mg p.o. daily. 4. Atrovent HFA two puffs inhaled q.i.d. 5. Lactulose 40 g p.o. q.i.d. 6. Humulin 300 units/3 mL vial 8 units subcu at bedtime. 7. Humulin 300 units/3 mL vial 10 units subcu q.a.m. 8. Lyrica 25 mg p.o. daily at bedtime. 9. Xifaxan 550 mg p.o. b.i.d. 10. Aldactone 100 mg p.o. q.a.m. with meal. 11. Omeprazole 20 mg 2 capsules p.o. daily. 12. Proventil 2 puffs inhaled q.i.d. p.r.n. for short of breath and wheezing. Discontinued medications; 1. Novolin 12 units subcu at bedtime. 2. Novolin 17 units subcu q.a.m. 3. Lactulose 60 mL p.o. t.i.d. strength 10 g/15 mL. HISTORY OF PRESENT ILLNESS/HOSPITAL COURSE: This is a 72-year-old pleasant male , who is an inmate, who was brought in by staff security after being found obtunded in the shelter building. He has a history of cirrhosis and was foudn to have an ammonia level of 140. He did not require intubation but made rapid clinical improvement with an increase in lactulose and Xifaxan. After discussing with [facility], it turns out the patient had been noncompliant with taking his medications. Within the past month, this is the patient's second hospitalization for the same condition. The patient clinically improved however remained A&O only to person and sometimes place. After discussing with the [facility] extensively, there was no documentation as to his baseline orientation status; however, it was conferred that he is able to perform his ADLs since he was placed in general population. Based on my encounters it is questionable whether patient comprehends his medical situation and and thus making him unable to make medical decisions appropriately. This is evidenced by the fact he has been hospitalized multiple times for hepatic encephalopathy recently. Due to concern for re-admission upon discharge it was determined patient needed a higher level of care. Arrangement were made for convalescent care at [facility] at [facility]. In regards to his Hep C cirrhosis, Hep C panels were re-checked to determine current status of this. HIV negative. He was treated prophylactically for SBP with Rocephin. In regards to his IDDM type 1, we made adjustments to his insulin regiment to avoid hypoglycemia ultimately decreasing his 70/30 requirements. The patient was eventually accepted at the [facility] and transferred on 08/02 to [facility] for convalescent care. It was recommended that workup that could not be done in hospital will be continued in an outpatient setting. We recommend performing hepatic Doppler ultrasound in order to assess for potential complications of cirrhosis such as portal thrombus such as portal venous thromboembolism, or for any liver masses. Please also check AFP levels as well too. The patient was Child Marrero class B based on his labs, which would technically qualify him for liver transplant and this can also be discussed with the pest control chemical technician in the outpatient setting. Finally, labs ordered to confirm status of hepatitis C. results are still pending. HIV negative. We will call to follow up with this at [facility]. DISCHARGE INSTRUCTIONS: 1. Location: Transfer to another center, [facility] for convalescent care. 2. Heart-healthy diet, diabetic diet. 3. Activity as tolerated. 4. Please follow up with PCP. Please follow up with pest control chemical technician to continue further workup and determine status of current hepatitis C cirrhosis. It was recommended to do a right or to do a hepatic Doppler ultrasound in order to assess for complications as stated above in addition to checking tumor markers. If needed, may need to be started on long-term treatment if qualifies. Job ID: [id number] [facility]
== END 2018-08-03 00:30 | disposition short-term general hospital (02) | DRG 442 ==
LOC: ERS 07:14 → T4-B 13:59
PROVIDERS: ADMIT Family Medicine; ATTEND Family Medicine
DX: K72.00 Acute and subacute hepatic failure without coma (principal); N17.9 Acute kidney failure, unspecified; B18.2 Chronic viral hepatitis C; K74.69 Other cirrhosis of liver; D69.59 Other secondary thrombocytopenia; E10.42 Type 1 diabetes mellitus with diabetic polyneuropathy; I10 Essential (primary) hypertension; E78.5 Hyperlipidemia, unspecified; K21.9 Gastro-esophageal reflux disease without esophagitis; Q80.9 Congenital ichthyosis, unspecified; Z91.14 Patient's other noncompliance with medication regimen; J45.909 Unspecified asthma, uncomplicated; Z79.4 Long term (current) use of insulin; Z79.899 Other long term (current) drug therapy
CPT/HCPCS: 36415; 36416; 51703; 70450; 71045; 80048; 80053; 80306; 80307; 81003; 82105; 82140; 82274; 82550; 83036; 83690; 84484; 85025; 85610; 85730; 87389; 87521; 93005; G8978-GP-CJ; G8979-GP-CJ; G8980-GP-CJ; J0696; J1650; J1815; J7050